=== PATIENT | male | born 1980 | race African-American/Black ===

== ENCOUNTER 2019-06-08 18:30 | Emergency (ER) | payer SELFPAY ==
[2019-06-08] MEDS ORDERED: ACETAMINOPHEN 500 MG TABLET (FP) PO ONE (18:47)
--- NOTE | 2019-06-08 18:47 | PDOC ---
Rapid Medical Evaluation Time Seen by Provider: 06/08/19 18:46 Medical Evaluation: 06/08/19 18:46 HPI: Headache x5 days PE: No gross deficits Orders CT Tylenol Discharge Disposition - Diagnosis Headache - Referrals - Patient Instructions - Post Discharge Activity
[2019-06-08 18:48] VITALS: TEMP 98.3; BMI 23.8
[2019-06-08] MEDS ORDERED: ACETAMINOPHEN 500 MG TABLET (FP) ONE (19:29)
--- NOTE | 2019-06-08 20:00 | PDOC ---
History of Present Illness - General Chief Complaint: Headache Stated Complaint: HEADACHE Time Seen by Provider: 06/08/19 18:46 History Source: Patient - History of Present Illness Initial Comments: 06/08/19 20:07 Chief complaint: Headache Patient 39-year-old male with no medical problems who is complaining of a headache for 5 days. Patient denies any fever, illness, photophobia, blurry vision or weakness. Patient has tried Tylenol and Advil. Patient is able to sleep but wakes up with a headache. No nausea, chest pain. GENERAL/CONSTITUTIONAL: No fever, weakness. dizziness HEAD, EYES, EARS, NOSE AND THROAT: No change in vision. No ear pain or discharge. No sore throat. CARDIOVASCULAR: No chest pain RESPIRATORY: No shortness of breath or cough GASTROINTESTINAL: No pain, nausea, vomiting, diarrhea or constipation GENITOURINARY: No dysuria MUSCULOSKELETAL: No neck or back pain SKIN: No rash NEUROLOGIC: +headache, no: Vertigo, loss of consciousness, or loss of sensation. GENERAL: The patient is awake, alert, and fully oriented, in no acute distress. HEAD: Normal with no signs of trauma. EYES: Pupils equal, round and reactive to light, sclera anicteric, conjunctiva clear. ENT: pharynx: no erythema, no exudate, uvula midline NECK: supple CHEST: clear, nontender, rr ABD: soft, nontender BACK: no tenderness or signs of injury EXTREMITIES: Normal range of motion, no edema. NEUROLOGICAL: Normal speech, normal gait. Cranial nerves II through XII grossly intact, no gross focal abnormalities SKIN: Warm, Dry Past History - Past Medical History Allergies/Adverse Reactions: Allergies Allergy/AdvReac Type Severity Reaction Status Date / Time No Known Allergies Allergy Verified 06/08/19 18:49 Home Medications: Ambulatory Orders Amox-Tr/K Cl [Augmentin - 875Mg Tablet] 1 tab PO BID #20 tablet 06/08/19 Butalb/Acetaminophen/Caffeine [Fioricet 50-300-40 mg Capsule] 1 each PO QID #12 capsule MDD 4 06/08/19 COPD: No - Psycho Social/Smoking Cessation Hx Smoking History: Never smoked *Physical Exam - Vital Signs Last Vital Signs Temp Pulse Resp BP Pulse Ox 98.3 F 89 18 149/100 100 06/08/19 18:44 06/08/19 18:44 06/08/19 18:44 06/08/19 18:44 06/08/19 18:44 ED Treatment Course - Medications Given in the ED: ED Medications Discontinued Medications Generic Name Dose Route Start Last Admin Trade Name Marge PRN Reason Stop Dose Admin Acetaminophen 1,000 mg 06/08/19 18:47 06/08/19 19:36 Tylenol - PO 06/08/19 18:48 Not Given ONCE ONE Medical Decision Making - Medical Decision Making 06/08/19 21:27 Blood pressure improved to 124/79, headache is gone. Head CT shows no acute process except for may be some sinusitis. Patient also has a problem with his left posterior wisdom tooth where his had pain for 2 to 3 weeks. Given his symptoms and findings. We will put him on Augmentin for the sinusitis and the tooth. Patient will follow-up. We will give him a small prescription of Fioricet for over the weekend. Patient will follow up with his doctor on Tuesday. Discussed issues, findings, results, applicable medications and treatments and follow-up. All these were understood and all questions were answered Discharge - Discharge Information Problems reviewed: Yes Clinical Impression/Diagnosis: Headache Qualifiers: Headache type: unspecified Headache chronicity pattern: unspecified pattern Intractability: not intractable Qualified Code(s): R51 - Headache Sinusitis Qualifiers: Sinusitis location: unspecified location Chronicity: acute Condition: Stable Disposition: HOME - Admission No - Additional Discharge Information Prescriptions: Amox-Tr/K Cl [Augmentin - 875Mg Tablet] 1 tab PO BID #20 tablet Butalb/Acetaminophen/Caffeine [Fioricet 50-300-40 mg Capsule] 1 each PO QID #12 capsule MDD 4 Prescription Drug Monitoring Program (I-STOP) results: I-STOP not reviewed - Follow up/Referral - Patient Discharge Instructions Patient Printed Discharge Instructions: DI for Headache Additional Instructions: It is not clear what is causing your headache, your head CT did not show any concerning findings but it did show some sinusitis which can cause headaches and we will treat you for this. The antibiotic will also help if you are developing an infection in the wisdom tooth. Take the Augmentin every 12 hours for 10 days until finished You can take Motrin 600 mg every 6 hours as needed for pain. You can also take the Fioricet if needed. Return to the ER if fever, worsening headache, nausea, vomiting or any other concerns. - Post Discharge Activity
[2019-06-08] MEDS ORDERED: SODIUM CHLORIDE 1,000 ML IV STA (20:05)
[2019-06-08] MEDS ORDERED: METOCLOPRAMIDE HCL INJECTION 10 MG/2 ML VIAL IVPUSH ONE (20:06)
[2019-06-08] MEDS ORDERED: METOCLOPRAMIDE HCL INJECTION 10 MG/2 ML VIAL ONE (20:13)
[2019-06-08] MEDS ORDERED: KETOROLAC TROMETHAMINE 30 MG/1 ML VIAL IVPUSH ONE (21:10)
[2019-06-08] MEDS ORDERED: KETOROLAC TROMETHAMINE 30 MG/1 ML VIAL ONE (21:12)
[2019-06-08 21:20] VITALS: BP 124/79; PULSE 79
== END 2019-06-08 21:38 | disposition home or self-care (01) ==
LOC: JERFT 18:30
PROC: 3E033GC Introduction of Other Therapeutic Substance into Peripheral Vein, Percutaneous Approach (ICD-10-PCS; principal; 2019-06-08)
PROC: 3E033GC Introduction of Other Therapeutic Substance into Peripheral Vein, Percutaneous Approach (ICD-10-PCS; 2019-06-08)
PROC: 3E0333Z Introduction of Anti-inflammatory into Peripheral Vein, Percutaneous Approach (ICD-10-PCS; 2019-06-08)
DX: R51 Headache (principal)
CPT/HCPCS: 70450-TC; 99282-25; J7030

== ENCOUNTER 2021-10-03 16:01 | Emergency (ER) | payer OTHER ==
[2021-10-03 16:07] VITALS: BP 135/95; PULSE 57; TEMP 97.9; BMI 24.8
[2021-10-03] MEDS ORDERED: IBUPROFEN 600 MG TABLET (FP) PO ONE ×2 (18:20→18:24)
== END 2021-10-03 18:28 | disposition home or self-care (01) ==
LOC: JER 16:01
DX: S62.603A Fracture of unspecified phalanx of left middle finger, initial encounter for closed fracture (principal); W21.05XA Struck by basketball, initial encounter; Y93.67 Activity, basketball
CPT/HCPCS: 73130-TC-RT-FY; 99283-25

== ENCOUNTER 2023-04-17 14:25 | Emergency (ER) | payer OTHER ==
[2023-04-17 14:34] VITALS: RESP 18; TEMP 98; BMI 23.8
[2023-04-17] MEDS ORDERED: ACETAMINOPHEN 500 MG TABLET (FP) PO ONE (15:39)
[2023-04-17] MEDS ORDERED: KETOROLAC TROMETHAMINE 30 MG/1 ML VIAL IM ONE (15:40)
[2023-04-17] MEDS ORDERED: LIDOCAINE 4% PATCH TP ONE ×2 (15:40→15:46)
[2023-04-17 15:45] VITALS: PULSE 60
[2023-04-17] MEDS ORDERED: CYCLOBENZAPRINE HCL 5 MG TABLET PO SCH (15:45)
[2023-04-17] MEDS ORDERED: CYCLOBENZAPRINE HCL 10 MG TABLET (FP) ONE (15:46)
[2023-04-17] MEDS ORDERED: ACETAMINOPHEN 500 MG TABLET (FP) ONE (15:46)
[2023-04-17] MEDS ORDERED: KETOROLAC TROMETHAMINE 30 MG/1 ML VIAL ONE (15:46)
[2023-04-17 16:57] VITALS: BP 160/107
[2023-04-17] MEDS ORDERED: LIDOCAINE PATCH REMOVAL MC SCH (22:00)
== END 2023-04-17 17:06 | disposition home or self-care (01) ==
LOC: JER 14:25
PROC: 3E0233Z Introduction of Anti-inflammatory into Muscle, Percutaneous Approach (ICD-10-PCS; principal; 2023-04-17)
DX: M54.6 Pain in thoracic spine (principal); M62.838 Other muscle spasm
CPT/HCPCS: 99284-25